=== PATIENT | female | born 2000 | race Caucasian/White ===

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

== ENCOUNTER 2021-02-27 10:54 | Outpatient (REF) | payer OTHER, SELFPAY ==
[2021-03-01 10:11] LABS: COVID-19 RT-PCR UVMMC Result Negative (Negative)
== END 2021-02-27 10:55 | disposition home or self-care (01) ==
LOC: NCHCN 10:54
PROVIDERS: PCP Nurse Practitioner Family; Visit Provider Physician Assistant Medical
DX: Z20.822 Contact with and (suspected) exposure to COVID-19 (principal); J06.9 Acute upper respiratory infection, unspecified
CPT/HCPCS: U0003

== ENCOUNTER 2021-06-21 18:23 | Outpatient (REF) | payer OTHER, SELFPAY ==
[2021-06-23 14:58] LABS: Chlamydia Result Negative (Negative); GC Result Negative (Negative)
== END 2021-06-21 18:24 | disposition home or self-care (01) ==
LOC: LBN 18:23
PROVIDERS: PCP Nurse Practitioner Family; Visit Provider Advanced Practice Midwife
DX: N89.8 Other specified noninflammatory disorders of vagina (principal); Z11.3 Encounter for screening for infections with a predominantly sexual mode of transmission
CPT/HCPCS: 87491; 87591; 87480; 87510; 87660

== ENCOUNTER 2022-03-21 03:06 | Outpatient (CLI) | payer OTHER, SELFPAY ==
[2022-03-21 16:53] LABS: Abs Immature Grans 0.03 10^3/uL (0.0-0.06); Absolute Basophil Count 0.04 10^3/uL (0.0-0.2); Absolute Eosinophil Count 0.03 10^3/uL (0.0-0.7); Absolute Lymphocyte Count 2.57 10^3/uL (1.2-3.4); Absolute Monocyte Count 0.76 10^3/uL (0.1-0.8); Absolute Neutrophil Count 6.51 10^3/uL (1.2-6.7); Basophils % 0.4; Eosinophils % 0.3; HCT 42.4 % (36.0-46.0); HGB 14.4 g/dL (11.2-15.7); Immature Grans % 0.3; Lymphocytes % 25.9; MCH 30.6 pg (27.0-33.0); MCV 90 fL (80-95); MPV 10.9 fL (8.0-11.0); Monocytes % 7.6; Neutrophils % 65.5; Platelet Count 199 10^3/uL (130-400); RDW 11.9 % (11.7-14.6); RDW-SD 39.8 fL; WBC 9.94 10^3/uL (4.4-10.8)
[2022-03-21 17:19] LABS: Hemoglobin A1C 5.1 % (<5.7)
[2022-03-21 17:45] LABS: ALT 32 U/L (14-59); AST 26 U/L (15-37); Alkaline Phosphatase 54 U/L (46-116); Anion Gap 12.6 mmol/L (3-11); BUN 16 mg/dL (7-18); Bilirubin, Total 0.4 mg/dL (0.2-1.0); CO2 22.4 mmol/L (21.0-32.0); CREATININE 0.8 mg/dL (0.55-1.02); Calcium 9.5 mg/dL (8.5-10.1); Chloride 101 mmol/L (98-107); Estimated GFR 107.44 (mL/min/1.73m2); Glucose 86 mg/dL (74-106); Potassium 3.6 mmol/L (3.5-5.1); Sodium 136 mmol/L (136-145); TSH (W/Ref FT4) 0.51 uIU/mL (0.36-3.74); Total Protein 7.5 g/dL (6.4-8.2)
== END 2022-03-21 03:07 | disposition home or self-care (01) ==
LOC: LBO 03:06
PROVIDERS: PCP Nurse Practitioner Family; Visit Provider Nurse Practitioner Family
DX: E66.9 Obesity, unspecified (principal); R53.83 Other fatigue
CPT/HCPCS: 36415; 80053; 83036; 84443; 85025

== ENCOUNTER 2023-03-22 14:10 | Outpatient (REF) | payer OTHER, SELFPAY ==
[2023-03-24 14:57] LABS: Chlamydia Result Negative (Negative); GC Result Negative (Negative)
== END 2023-03-22 14:11 | disposition home or self-care (01) ==
LOC: LBN 14:10
PROVIDERS: PCP Nurse Practitioner Family; Visit Provider Nurse Practitioner Family
DX: Z11.3 Encounter for screening for infections with a predominantly sexual mode of transmission (principal)
CPT/HCPCS: 87491; 87591